=== PATIENT | male | born 1980 | race Caucasian/White ===

== ENCOUNTER 2018-09-28 18:45 | Emergency (ER) | payer OTHER ==
[2018-09-28 19:01] VITALS: BP 159/98; PULSE 83; TEMP 98.5; BMI 35.5
--- NOTE | 2018-09-28 20:07 | PDOC ---
History of Present Illness - General Chief Complaint: Injury Stated Complaint: HEAD INJURY Time Seen by Provider: 09/28/18 19:13 - History of Present Illness Initial Comments: 09/28/18 20:02 38 y/o M presents after head injury at work, he states he was standing with his neck in a flexed position and a large box about 3 feet above his head carring a cabinet fell on is head, There was no LOC, post injury nausea, vomiting, or visual changes, he does have neck pain without radicular symptoms Past History - Past Medical History Allergies/Adverse Reactions: Allergies Allergy/AdvReac Type Severity Reaction Status Date / Time shellfish derived Allergy Verified 09/28/18 18:58 Home Medications: Ambulatory Orders Cyclobenzaprine HCl [Flexeril 10 mg] 10 mg PO HS PRN #10 tablet 09/28/18 Ibuprofen [Motrin -] 600 mg PO TID #30 tablet 09/28/18 COPD: No - Immunization History Immunization Up to Date: Yes - Suicide/Smoking/Psychosocial Hx Smoking History: Current every day smoker Number of Cigarettes Smoked Daily: 20 Information on smoking cessation initiated: No Hx Alcohol Use: No Drug/Substance Use Hx: No Review of Systems - Review of Systems Musculoskeletal: Yes: Neck Pain *Physical Exam - Vital Signs Last Vital Signs Temp Pulse Resp BP Pulse Ox 98.5 F 83 17 159/98 100 09/28/18 18:59 09/28/18 18:59 09/28/18 18:59 09/28/18 18:59 09/28/18 18:59 - Physical Exam Comments: 09/28/18 20:03 HEAD: NC/ there is a small area of hematoma on the posterior aspect of the L parital scalp EYES: Conjuntiva clear PERRL EOMI Ears: Canals and TM's normal NOSE: No d/c THROAT: Moist mucous membrances, oral pharanx clear, uvula midline NECK: Supple without adenopathy; no midline tenderness moderate paracervical muscular spasm and tenderness CARDIAC: S1 S2 LUNGS: CTA Full and Equal breath sounds ABDOMEN: Soft NT ND MS: Full ROM in all joints without edema NEUROLOGIC: No gross sensory or motor deficits, NVID SKIN: Normal color and temperature no lesions or rashes ED Treatment Course - RADIOLOGY Radiology Studies Ordered: Category Date Time Status CERVICAL SPINE CT W/O CONTR [CT] Stat CT Scan 09/28/18 19:[address] WITHOUT CONTRAST [CT] Stat CT Scan 09/28/18 19:21 Completed Medical Decision Making - Medical Decision Making 09/28/18 20:05 CT of head and neck ordered based on trauma and ALEX. Negative will treat with Motrin and Flexeril, Out of work until cleared by Neuro Surgery *DC/Admit/Observation/Transfer Diagnosis at time of Disposition: Cervical strain, Closed head injury - Discharge Dispostion Disposition: HOME Condition at time of disposition: Stable Decision to Admit order: No - Referrals Referrals: Sancho Diaz MD, [facility] [Staff Physician] - - Patient Instructions Printed Discharge Instructions: DI for Closed Head Injury Additional Instructions: Motrin and Flexeril as prescribed. REturn to the emergency room should symptoms worsen. Follow up with Neuro Surgery in 1-2 without fail for further evaluation and treatment options. No work until CLEARED by neurosurgery - Post Discharge Activity Forms/Work/School Notes: Back to Work
== END 2018-09-28 20:16 | disposition home or self-care (01) ==
LOC: JERFT 18:45
DX: S16.1XXA Strain of muscle, fascia and tendon at neck level, initial encounter (principal); S09.90XA Unspecified injury of head, initial encounter; W20.8XXA Other cause of strike by thrown, projected or falling object, initial encounter; Y93.89 Activity, other specified; Y92.89 Other specified places as the place of occurrence of the external cause; Y99.0 Civilian activity done for income or pay; F17.210 Nicotine dependence, cigarettes, uncomplicated
CPT/HCPCS: 70450-TC; 72125-TC; 99281-25